=== PATIENT | male | born 1960 | race Two or more races ===

== ENCOUNTER 2018-07-25 11:29 | Emergency (ER) | payer SELFPAY ==
[~2018-07-25] VITALS: Ht 167.6 cm; Wt 73.5 kg
[2018-07-25 11:40] VITALS: BP 154/83
--- NOTE | 2018-07-25 14:18 | NUR ---
WOUND CARE PROVIDED. D/C HOME IN STABLE CONDITION. IMAGING PROVIDED.
== END 2018-07-25 14:20 | disposition home or self-care (01) ==
LOC: ER 11:29
DX: E11.621 Type 2 diabetes mellitus with foot ulcer (principal); I10 Essential (primary) hypertension; Z98.890 Other specified postprocedural states
CPT/HCPCS: 73630; 99283; A6403